=== PATIENT | male | born 1960 | race African-American/Black ===

== ENCOUNTER 2020-03-31 09:42 | Emergency (ER) | payer MEDICARE, MEDICAID, OTHER ==
[2020-04-01 14:12] LABS: SARS-CoV-2 MS2 Positive; SARS-CoV-2 N Gene Negative; SARS-CoV-2 S Gene Negative; SARS-CoV-2 orf1ab Negative
== END 2020-03-31 10:13 | disposition home or self-care (01) ==
LOC: ERS 09:42
DX: Z20.828 Contact with and (suspected) exposure to other viral communicable diseases (principal); F41.9 Anxiety disorder, unspecified; F17.210 Nicotine dependence, cigarettes, uncomplicated
CPT/HCPCS: 99283; U0003; 87635

== ENCOUNTER 2021-10-13 12:26 | Emergency (ER) | payer MEDICARE, MEDICAID, OTHER ==
[2021-10-13 13:00] LABS: #Eosinphils 0.2 thou/uL (0.0-0.7); #Lymphocytes 1.3 thou/uL (1.20-3.40); #Monocytes 0.6 thou/uL (0.11-0.59); #Neutrophils 2.7 thou/uL (1.40-6.50); %Basophils 0.3 % (0.0-1.0); %Eosinophils 3.9 % (0.0-10.0); %Monocytes 11.7 % (0.0-10.0); %Neutrophils 57.2 % (42.0-75.0); Hemoglobin 14.3 g/dL (14.0-18.0); Mean Corpuscular HGB CONC 33.2 g/dL (32.0-36.0); Mean Corpuscular Volume 96.2 fL (78.0-98.0); Mean Platelet Volume 6.3 fL (7.4-10.4); Platelet Count 215 thou/uL (130-400); Red Blood Cell (RBC) Count 4.48 mill/uL (4.70-6.10); White Blood Cell (WBC) Count 4.7 thou/uL (4.8-10.8)
[2021-10-13 13:26] LABS: ALT (SGPT) 24 U/L (8-55); AST (SGOT) 19 U/L (5-34); Albumin 3.9 g/dL (3.4-4.8); Alkaline Phosphatase 85 U/L (40-110); Anion Gap 12 mmol/L (10-20); BUN (Urea Nitrogen) 11 mg/dL (8.4-25.7); Bilirubin, Total 0.4 mg/dL (0.2-1.2); Calc. Creatinine Clearance 0 mL/min (70-130); Calcium 9.7 mg/dL (7.8-10.44); Carbon Dioxide 26 mmol/L (23-31); Chloride 106 mmol/L (98-107); Globulin 2.8 g/dL (2.4-3.5); Glucose 80 mg/dL (80-115); Lipase 30 U/L (8-78); Potassium 4.1 mmol/L (3.5-5.1); Protein, Total 6.7 g/dL (5.8-8.1); Sodium 140 mmol/L (136-145)
[2021-10-13] MEDS ORDERED: Iopamidol-370 76% 500 ML 1 ML ONE (14:13)
== END 2021-10-13 15:04 | disposition home or self-care (01) ==
LOC: ERS 12:26
DX: S09.90XA Unspecified injury of head, initial encounter (principal); R07.81 Pleurodynia; V58.5XXA Driver of pick-up truck or van injured in noncollision transport accident in traffic accident, initial encounter
CPT/HCPCS: 36415; 70450; 71260; 72125; 74177; 80053; 83690; 85025; 86850; 86900; 86901; 93005; Q9967

== ENCOUNTER 2021-10-16 16:23 | Emergency (ER) | payer MEDICARE, MEDICAID, OTHER | END 2021-10-16 17:47 | disposition left against medical advice (07) | LOC: ERS 16:23 | DX: Z53.21 Procedure and treatment not carried out due to patient leaving prior to being seen by health care provider (principal) ==